=== PATIENT | male | born 1930 | race Caucasian/White ===

== ENCOUNTER → 2016-08-12 | Outpatient (REF) | payer MEDICARE, OTHER ==
[~2016-08-12] MED LIST: /ADVA50050 INH; ACTO15TA OR; AMBI5TAB PO; ASPI81TA83 OR; COZA25TA8 OR; GLUC500T OR; LOPR50TA PO; MEST60TA PO; MULTIVIT PO; OMEP20TA7 PO; REFLUX MED PO; ROSU10TA OR; STOOL SOFTENER PO; VENTAER INH; VITAMIN C PO; ZETI10TA OR
[2016-08-12 13:51] LABS: BASO % 0.4 % (0.0-1.0); EOS # 0.1 K/mm3 (0.0-0.50); EOS % 1.7 % (0.0-3.0); LARGE UNSTAINED CELL # 0.2 K/mm3 (0.0-0.4); LARGE UNSTAINED CELL % 2.4 % (0.0-4.0); LYMPH # 0.5 K/mm3 (1.5-4.5); LYMPH % 7.6 % (24.0-44.0); MEAN CORPUSCULAR HEMOGLOBIN 29.7 pg (27.0-33.0); MEAN CORPUSCULAR HGB CONC 30.4 g/dl (32.0-36.5); MEAN CORPUSCULAR VOLUME 97.6 fl (80.0-96.0); MONO # 0.6 K/mm3 (0.0-0.8); MONO % 8.2 % (0.0-5.0); NEUTROPHILS # 5.3 K/mm3 (1.8-7.7); NEUTROPHILS % 79.7 % (36.0-66.0); PLATELET COUNT, AUTOMATED 443 k/mm3 (150-450); RED CELL DISTRIBUTION WIDTH 13.1 % (11.5-14.5); WHITE BLOOD COUNT 6.7 K/mm3 (4.0-10.0)
[2016-08-12 14:22] LABS: ALBUMIN/GLOBULIN RATIO 0.91 (1.00-1.93); BILIRUBIN,TOTAL 0.2 MG/DL (0.2-1.0); CALCIUM LEVEL 8.8 MG/DL (8.8-10.2); CREATININE FOR GFR 1.92 MG/DL (0.70-1.30); GLOMERULAR FILTRATION RATE 35.7 (>35); POTASSIUM SERUM 4.6 MEQ/L (3.5-5.1); TOTAL PROTEIN 6.3 GM/DL (6.4-8.2)
== END ==
LOC: M LABNEURO 13:18
PROVIDERS: ATTEND Psychiatry & Neurology Neurology
DX: G70.00 Myasthenia gravis without (acute) exacerbation (principal)

== ENCOUNTER → 2016-12-16 | Outpatient (REF) | payer MEDICARE, OTHER ==
[2016-12-16 14:22] LABS: BASO % 0.3 % (0.0-1.0); EOS # 0.1 K/mm3 (0.0-0.50); EOS % 1.5 % (0.0-3.0); LARGE UNSTAINED CELL # 0.2 K/mm3 (0.0-0.4); LARGE UNSTAINED CELL % 2.8 % (0.0-4.0); LYMPH # 0.5 K/mm3 (1.5-4.5); LYMPH % 7.8 % (24.0-44.0); MEAN CORPUSCULAR HEMOGLOBIN 30.8 pg (27.0-33.0); MEAN CORPUSCULAR HGB CONC 31.5 g/dl (32.0-36.5); MEAN CORPUSCULAR VOLUME 97.8 fl (80.0-96.0); MONO # 0.5 K/mm3 (0.0-0.8); MONO % 8.2 % (0.0-5.0); NEUTROPHILS # 5.2 K/mm3 (1.8-7.7); NEUTROPHILS % 79.4 % (36.0-66.0); PLATELET COUNT, AUTOMATED 436 k/mm3 (150-450); WHITE BLOOD COUNT 6.6 K/mm3 (4.0-10.0)
[2016-12-16 15:39] LABS: ALBUMIN 2.8 GM/DL (3.2-5.2); ALBUMIN/GLOBULIN RATIO 0.78 (1.00-1.93); BILIRUBIN,TOTAL 0.3 MG/DL (0.2-1.0); CALCIUM LEVEL 8.5 MG/DL (8.8-10.2); CREATININE FOR GFR 1.96 MG/DL (0.70-1.30); GLOMERULAR FILTRATION RATE 34.9 (>35); POTASSIUM SERUM 4.4 MEQ/L (3.5-5.1); TOTAL PROTEIN 6.4 GM/DL (6.4-8.2)
== END ==
LOC: M LABNEURO 13:03
PROVIDERS: ATTEND Psychiatry & Neurology Neurology
DX: G70.00 Myasthenia gravis without (acute) exacerbation (principal)

== ENCOUNTER → 2017-03-03 | Outpatient (REF) | payer MEDICARE, OTHER ==
[2017-03-03 18:40] LABS: FOLATE 16.6 NG/ML
== END ==
LOC: M LAB REF 16:19
PROVIDERS: ATTEND Internal Medicine
DX: D64.9 Anemia, unspecified (principal)

== ENCOUNTER → 2017-03-31 | Outpatient (REF) | payer MEDICARE, OTHER | LOC: M LAB REF 17:47 | PROVIDERS: ATTEND Internal Medicine | DX: R63.4 Abnormal weight loss (principal) ==

== ENCOUNTER 2017-07-09 11:39 | Day surgery (SDC) | payer MEDICARE, OTHER ==
[2017-07-09] MEDS: NS 1,000 ML IV (13:00)
[2017-07-09] MEDS ORDERED: LIDOCAINE 2% INJ 100 MG/5 ML SDV (FOR ANES.) As Ordered (13:21)
[2017-07-09] MEDS ORDERED: PROPOFOL 200 MG/20 ML VIAL As Ordered ×2 (13:21)
[2017-07-09] MEDS ORDERED: ePHEDrine SULFATE 25 MG/5 ML(5MG/ML) SYRINGE As Ordered (13:39)
== END 2017-07-09 14:35 | disposition home or self-care (01) ==
LOC: M OPP 11:39
DX: D50.9 Iron deficiency anemia, unspecified (principal); R19.5 Other fecal abnormalities; K63.3 Ulcer of intestine; K57.30 Diverticulosis of large intestine without perforation or abscess without bleeding; K64.0 First degree hemorrhoids; K31.89 Other diseases of stomach and duodenum; K44.9 Diaphragmatic hernia without obstruction or gangrene; I25.10 Atherosclerotic heart disease of native coronary artery without angina pectoris; I10 Essential (primary) hypertension; E78.5 Hyperlipidemia, unspecified; K21.9 Gastro-esophageal reflux disease without esophagitis; R12 Heartburn; Z95.1 Presence of aortocoronary bypass graft; G70.00 Myasthenia gravis without (acute) exacerbation; R06.02 Shortness of breath; M19.90 Unspecified osteoarthritis, unspecified site; J44.9 Chronic obstructive pulmonary disease, unspecified; F17.220 Nicotine dependence, chewing tobacco, uncomplicated; Z88.8 Allergy status to other drugs, medicaments and biological substances; Z79.82 Long term (current) use of aspirin; Z79.899 Other long term (current) drug therapy; Z80.3 Family history of malignant neoplasm of breast
CPT/HCPCS: 45380

== ENCOUNTER → 2017-08-16 | Outpatient (REF) | payer MEDICARE, OTHER ==
[2017-08-16 18:38] LABS: IRON (FE) 39 UG/DL (65-175); PERCENT SATURATION 20.5 % (19.7-50.0); TOTAL IRON BINDING CAPACITY 190 UG/DL (250-450)
== END ==
LOC: M LAB REF 17:08
DX: D50.0 Iron deficiency anemia secondary to blood loss (chronic) (principal)
CPT/HCPCS: 83550

== ENCOUNTER → 2017-10-07 | Outpatient (CLI) | payer MEDICARE, OTHER ==
[~2017-10-07] MED LIST changes: -/ADVA50050 INH; -ACTO15TA OR; -AMBI5TAB PO; -ASPI81TA83 OR; -COZA25TA8 OR; -GLUC500T OR; +GLUCAGON FOR INJ 1 MG VIAL (J1610) As Ordered; +ISOVUE-370 76% 100ML VIAL (Q9967) As Ordered; -LOPR50TA PO; -MEST60TA PO; -MULTIVIT PO; -OMEP20TA7 PO; -REFLUX MED PO; -ROSU10TA OR; -STOOL SOFTENER PO; -VENTAER INH; -VITAMIN C PO; +VoLumen 0.1% SUSPENSION 450ML BOTTLE As Ordered; -ZETI10TA OR
== END ==
LOC: M RAD 07:24
DX: D64.9 Anemia, unspecified (principal); R93.3 Abnormal findings on diagnostic imaging of other parts of digestive tract
CPT/HCPCS: 74177

== ENCOUNTER 2017-11-06 15:19 | Inpatient (IN) | payer MEDICARE, OTHER ==
[2017-11-06 16:53] LABS: BASO % 0.4 % (0.0-1.0); EOS # 0.1 10^3/uL (0.0-0.50); EOS % 1.6 % (0.0-3.0); HEMATOCRIT 29.5 % (42.0-52.0); HEMOGLOBIN 8.9 g/dl (13.5-17.5); IMMATURE GRANULOCYTE % 0.9 % (0-3.0); LYMPH # 0.5 10^3/uL (1.5-4.5); LYMPH % 7.9 % (24.0-44.0); MEAN CORPUSCULAR HEMOGLOBIN 29.7 pg (27.0-33.0); MEAN CORPUSCULAR HGB CONC 30.2 g/dl (32.0-36.5); MEAN CORPUSCULAR VOLUME 98.3 fl (80.0-96.0); MONO # 0.6 10^3/uL (0.0-0.8); MONO % 8.2 % (0.0-5.0); NEUTROPHILS # 5.6 10^3/uL (1.8-7.7); PLATELET COUNT, AUTOMATED 507 10^3/uL (150-450); RED CELL DISTRIBUTION WIDTH 16.4 % (11.5-14.5); WHITE BLOOD COUNT 6.9 10^3/uL (4.0-10.0)
[2017-11-06 16:57] LABS: INR 0.92; PROTHROMBIN TIME 12.5 SECONDS (12.1-14.4)
[2017-11-06 16:58] LABS: PARTIAL THROMBOPLASTIN TIME 25.3 SECONDS (25.4-37.6)
[2017-11-06 17:06] LABS: ALBUMIN 2.6 GM/DL (3.2-5.2); ALKALINE PHOSPHATASE 78 U/L (45-117); ALT/SGPT 16 U/L (12-78); ANION GAP 9 MEQ/L (8-16); AST/SGOT 15 U/L (7-37); BILIRUBIN,DIRECT < 0.1 MG/DL (0.0-0.2); BILIRUBIN,TOTAL 0.1 MG/DL (0.2-1.0); BLOOD UREA NITROGEN 27 MG/DL (7-18); C REACTIVE PROTEIN QUANTITATIV 0.74 MG/DL (0.00-0.30); CALCIUM LEVEL 7.9 MG/DL (8.8-10.2); CARBON DIOXIDE LEVEL 24 MEQ/L (21-32); CHLORIDE LEVEL 104 MEQ/L (98-107); CPK CREATINE PHOSPHOKINASE 37 U/L (39-308); CREATININE FOR GFR 1.37 MG/DL (0.70-1.30); FREE T4 0.82 NG/DL (0.76-1.46); GLOMERULAR FILTRATION RATE 52.6 (>35); GLUCOSE, FASTING 93 MG/DL (70-100); POTASSIUM SERUM 4.2 MEQ/L (3.5-5.1); SODIUM LEVEL 137 MEQ/L (136-145); TOTAL PROTEIN 6.3 GM/DL (6.4-8.2); TROPONIN I < 0.02 NG/ML (< 0.10)
[2017-11-06 17:11] LABS: CK-MB VALUE MASS 1.3 NG/ML (<3.6); MB/CK RELATIVE INDEX 3.51 (< OR =4)
[2017-11-06] MEDS: ASPIRIN 325 MG TAB PO (18:17)
[2017-11-06 18:42] LABS: FERRITIN 258 NG/ML (26-388); IRON (FE) 51 UG/DL (65-175); PERCENT SATURATION 23.6 % (19.7-50.0); TOTAL IRON BINDING CAPACITY 216 UG/DL (250-450)
[2017-11-06] MEDS ORDERED: IPRATROPIUM 0.5MG/ALBUTEROL 2.5MG INH SOL UD 3ML (DUONEB)(J7620) NEB (20:15)
[2017-11-06] MEDS ORDERED: ACETAMINOPHEN TAB 650MG DOSE (2X325MG) PO (20:15)
[2017-11-06] MEDS ORDERED: OMEPRAZOLE 20 MG CAP PO (20:30)
[2017-11-06] MEDS: ADVAIR HFA 230/21MCG INHALER INH (21:00)
[2017-11-06] MEDS: WARFARIN SOD 5 MG TAB PO (23:23)
[2017-11-06] MEDS: ROSUVASTATIN 10 MG TAB (CRESTOR) PO (23:23)
[2017-11-06] MEDS: diphenhydrAMINE 25 MG CAP PO (23:23)
[2017-11-06] MEDS: PYRIDOSTIGMINE 60 MG TAB PO (23:24)
[2017-11-06] MEDS: MESALAMINE 250 MG CR CAP PO (23:24)
[2017-11-06] MEDS: MYCOPHENOLATE MOFETIL 250 MG CAP (J7517) PO (23:24)
[2017-11-06] MEDS ORDERED: PILL CRUSHER/CUTTER 1 EACH XX (23:30)
[2017-11-07 06:29] LABS: INR 0.94; PROTHROMBIN TIME 12.7 SECONDS (12.1-14.4)
[2017-11-07 06:34] LABS: ANION GAP 8 MEQ/L (8-16); BLOOD UREA NITROGEN 26 MG/DL (7-18); CALCIUM LEVEL 7.5 MG/DL (8.8-10.2); CARBON DIOXIDE LEVEL 25 MEQ/L (21-32); CHLORIDE LEVEL 104 MEQ/L (98-107); CREATININE FOR GFR 1.47 MG/DL (0.70-1.30); GLOMERULAR FILTRATION RATE 48.5 (>35); GLUCOSE, FASTING 92 MG/DL (70-100); POTASSIUM SERUM 4.1 MEQ/L (3.5-5.1); SODIUM LEVEL 137 MEQ/L (136-145)
[2017-11-07 07:48] LABS: HEMOGLOBIN 7.8 g/dl (13.5-17.5); MEAN CORPUSCULAR HEMOGLOBIN 30.1 pg (27.0-33.0); MEAN CORPUSCULAR HGB CONC 31.2 g/dl (32.0-36.5); MEAN CORPUSCULAR VOLUME 96.5 fl (80.0-96.0); PLATELET COUNT, AUTOMATED 472 10^3/uL (150-450); RED BLOOD COUNT 2.59 10^6/uL (4.30-6.10); RED CELL DISTRIBUTION WIDTH 16.1 % (11.5-14.5)
[2017-11-07] MEDS: ADVAIR HFA 230/21MCG INHALER INH ×2 (07:48→21:17)
[2017-11-07] MEDS: CALCITRIOL 0.25 MCG CAP (S0169) PO (09:19)
[2017-11-07] MEDS: MULTIVITAMINS/MINERALS THERAP 1 TAB PO (09:19)
[2017-11-07] MEDS: VITAMIN D 1,000 INTERNATIONAL UNITS TABLET PO (09:20)
[2017-11-07] MEDS: PYRIDOSTIGMINE 60 MG TAB PO ×4 (09:20→20:07)
[2017-11-07] MEDS: LOSARTAN 25 MG TAB PO (09:21)
[2017-11-07] MEDS: MYCOPHENOLATE MOFETIL 250 MG CAP (J7517) PO ×2 (09:21→20:05)
[2017-11-07] MEDS: MESALAMINE 250 MG CR CAP PO ×4 (09:21→20:06)
[2017-11-07] MEDS: ASPIRIN 325 MG TAB FT (09:21)
[2017-11-07] MEDS: predniSONE 5 MG TAB PO (09:22)
[2017-11-07] MEDS: FERROUS SULFATE 325MG TAB PO (09:22)
[2017-11-07] MEDS: TAMSULOSIN 0.4 MG CAP PO (09:22)
[2017-11-07] MEDS ORDERED: IPRATROPIUM 0.5MG/ALBUTEROL 2.5MG INH SOL UD 3ML (DUONEB)(J7620) NEB (14:15)
[2017-11-07] MEDS: WARFARIN SOD 5 MG TAB PO ×2 (17:55)
[2017-11-07] MEDS: ROSUVASTATIN 10 MG TAB (CRESTOR) PO (20:06)
[2017-11-08 05:27] LABS: HEMATOCRIT 24.1 % (42.0-52.0); HEMOGLOBIN 7.5 g/dl (13.5-17.5); MEAN CORPUSCULAR HEMOGLOBIN 30.1 pg (27.0-33.0); MEAN CORPUSCULAR HGB CONC 31.1 g/dl (32.0-36.5); MEAN CORPUSCULAR VOLUME 96.8 fl (80.0-96.0); PLATELET COUNT, AUTOMATED 393 10^3/uL (150-450); RED BLOOD COUNT 2.49 10^6/uL (4.30-6.10); WHITE BLOOD COUNT 7.8 10^3/uL (4.0-10.0)
[2017-11-08 05:34] LABS: INR 1.15; PROTHROMBIN TIME 14.9 SECONDS (12.1-14.4)
[2017-11-08 05:44] LABS: ANION GAP 9 MEQ/L (8-16); BLOOD UREA NITROGEN 23 MG/DL (7-18); CALCIUM LEVEL 7.6 MG/DL (8.8-10.2); CARBON DIOXIDE LEVEL 23 MEQ/L (21-32); CHLORIDE LEVEL 103 MEQ/L (98-107); CREATININE FOR GFR 1.42 MG/DL (0.70-1.30); GLOMERULAR FILTRATION RATE 50.4 (>35); GLUCOSE, FASTING 113 MG/DL (70-100); POTASSIUM SERUM 3.8 MEQ/L (3.5-5.1); SODIUM LEVEL 135 MEQ/L (136-145)
[2017-11-08] MEDS: ADVAIR HFA 230/21MCG INHALER INH ×2 (07:36→20:56)
[2017-11-08] MEDS: MYCOPHENOLATE MOFETIL 250 MG CAP (J7517) PO ×2 (08:56→21:13)
[2017-11-08] MEDS: MESALAMINE 250 MG CR CAP PO ×4 (08:56→21:16)
[2017-11-08] MEDS: CALCITRIOL 0.25 MCG CAP (S0169) PO (08:56)
[2017-11-08] MEDS: PYRIDOSTIGMINE 60 MG TAB PO ×4 (08:56→21:15)
[2017-11-08] MEDS: VITAMIN D 1,000 INTERNATIONAL UNITS TABLET PO (08:56)
[2017-11-08] MEDS: ASPIRIN 325 MG TAB FT (08:56)
[2017-11-08] MEDS: TAMSULOSIN 0.4 MG CAP PO (08:57)
[2017-11-08] MEDS: LOSARTAN 25 MG TAB PO (08:57)
[2017-11-08] MEDS: predniSONE 5 MG TAB PO (08:57)
[2017-11-08] MEDS: MULTIVITAMINS/MINERALS THERAP 1 TAB PO (08:57)
[2017-11-08] MEDS ORDERED: SLF 3 ML SYR IV (09:45)
[2017-11-08 10:33] LABS: FOLATE 18.6 NG/ML (>5.4); VITAMIN B12 LEVEL 366 PG/ML (247-911)
[2017-11-08] MEDS: SLF 3 ML SYR IV ×2 (13:09→21:16)
[2017-11-08] MEDS: ROSUVASTATIN 10 MG TAB (CRESTOR) PO (21:14)
[2017-11-08] MEDS: WARFARIN SOD 5 MG TAB PO (23:27)
[2017-11-09 05:20] LABS: HEMATOCRIT 23.4 % (42.0-52.0); HEMOGLOBIN 7.4 g/dl (13.5-17.5); MEAN CORPUSCULAR HEMOGLOBIN 29.6 pg (27.0-33.0); MEAN CORPUSCULAR HGB CONC 31.6 g/dl (32.0-36.5); MEAN CORPUSCULAR VOLUME 93.6 fl (80.0-96.0); PLATELET COUNT, AUTOMATED 401 10^3/uL (150-450); RED CELL DISTRIBUTION WIDTH 15.8 % (11.5-14.5); WHITE BLOOD COUNT 9.3 10^3/uL (4.0-10.0)
[2017-11-09 05:33] LABS: INR 1.65; PROTHROMBIN TIME 19.8 SECONDS (12.1-14.4)
[2017-11-09 05:39] LABS: ANION GAP 7 MEQ/L (8-16); BLOOD UREA NITROGEN 28 MG/DL (7-18); CALCIUM LEVEL 7.9 MG/DL (8.8-10.2); CARBON DIOXIDE LEVEL 26 MEQ/L (21-32); CHLORIDE LEVEL 102 MEQ/L (98-107); CREATININE FOR GFR 1.49 MG/DL (0.70-1.30); GLOMERULAR FILTRATION RATE 47.7 (>35); GLUCOSE, FASTING 119 MG/DL (70-100); POTASSIUM SERUM 3.9 MEQ/L (3.5-5.1); SODIUM LEVEL 135 MEQ/L (136-145)
[2017-11-09] MEDS: SLF 3 ML SYR IV ×3 (06:00→22:02)
[2017-11-09] MEDS: ADVAIR HFA 230/21MCG INHALER INH ×2 (07:20→20:51)
[2017-11-09] MEDS: MESALAMINE 250 MG CR CAP PO ×4 (08:55→22:01)
[2017-11-09] MEDS: LOSARTAN 25 MG TAB PO (08:56)
[2017-11-09] MEDS: PYRIDOSTIGMINE 60 MG TAB PO ×4 (08:56→22:01)
[2017-11-09] MEDS: predniSONE 5 MG TAB PO (08:56)
[2017-11-09] MEDS: TAMSULOSIN 0.4 MG CAP PO (08:56)
[2017-11-09] MEDS: CALCITRIOL 0.25 MCG CAP (S0169) PO (08:56)
[2017-11-09] MEDS: ASPIRIN 325 MG TAB FT (08:56)
[2017-11-09] MEDS: VITAMIN D 1,000 INTERNATIONAL UNITS TABLET PO (08:56)
[2017-11-09] MEDS: MULTIVITAMINS/MINERALS THERAP 1 TAB PO (08:56)
[2017-11-09] MEDS: FERROUS SULFATE 325MG TAB PO (08:57)
[2017-11-09] MEDS: MYCOPHENOLATE MOFETIL 250 MG CAP (J7517) PO ×2 (08:57→22:01)
[2017-11-09 15:02] LABS: INR 1.79; PROTHROMBIN TIME 21.1 SECONDS (12.1-14.4)
[2017-11-09] MEDS: WARFARIN SOD 5 MG TAB PO (16:54)
[2017-11-09] MEDS: ROSUVASTATIN 10 MG TAB (CRESTOR) PO (22:01)
[2017-11-10] MEDS: SLF 3 ML SYR IV (04:53)
[2017-11-10 06:17] LABS: HEMATOCRIT 25.6 % (42.0-52.0); MEAN CORPUSCULAR HEMOGLOBIN 30.4 pg (27.0-33.0); MEAN CORPUSCULAR HGB CONC 31.3 g/dl (32.0-36.5); MEAN CORPUSCULAR VOLUME 97.3 fl (80.0-96.0); PLATELET COUNT, AUTOMATED 396 10^3/uL (150-450); RED BLOOD COUNT 2.63 10^6/uL (4.30-6.10); WHITE BLOOD COUNT 7.9 10^3/uL (4.0-10.0)
[2017-11-10 06:28] LABS: ANION GAP 6 MEQ/L (8-16); BLOOD UREA NITROGEN 27 MG/DL (7-18); CARBON DIOXIDE LEVEL 27 MEQ/L (21-32); CHLORIDE LEVEL 103 MEQ/L (98-107); CREATININE FOR GFR 1.48 MG/DL (0.70-1.30); GLOMERULAR FILTRATION RATE 48.1 (>35); GLUCOSE, FASTING 111 MG/DL (70-100); POTASSIUM SERUM 3.9 MEQ/L (3.5-5.1); SODIUM LEVEL 136 MEQ/L (136-145)
[2017-11-10 06:30] LABS: INR 2.15; PROTHROMBIN TIME 24.4 SECONDS (12.1-14.4)
[2017-11-10] MEDS: PYRIDOSTIGMINE 60 MG TAB PO ×2 (08:15→12:06)
[2017-11-10] MEDS: MYCOPHENOLATE MOFETIL 250 MG CAP (J7517) PO (08:16)
[2017-11-10] MEDS: CALCITRIOL 0.25 MCG CAP (S0169) PO (08:16)
[2017-11-10] MEDS: LOSARTAN 25 MG TAB PO (08:16)
[2017-11-10] MEDS: TAMSULOSIN 0.4 MG CAP PO (08:16)
[2017-11-10] MEDS: MULTIVITAMINS/MINERALS THERAP 1 TAB PO (08:16)
[2017-11-10] MEDS: MESALAMINE 250 MG CR CAP PO ×2 (08:16→12:06)
[2017-11-10] MEDS: ASPIRIN 325 MG TAB FT (08:16)
[2017-11-10] MEDS: VITAMIN D 1,000 INTERNATIONAL UNITS TABLET PO (08:17)
[2017-11-10] MEDS: predniSONE 5 MG TAB PO (08:17)
[2017-11-10] MEDS: ADVAIR HFA 230/21MCG INHALER INH (08:33)
== END 2017-11-10 12:22 | disposition home health service (06) | DRG 66 ==
LOC: M ED 15:19 → M ED INP 20:11 → M PCU 22:23
DX: I63.511 Cerebral infarction due to unspecified occlusion or stenosis of right middle cerebral artery (principal); I63.521 Cerebral infarction due to unspecified occlusion or stenosis of right anterior cerebral artery; H53.2 Diplopia; G70.00 Myasthenia gravis without (acute) exacerbation; J44.9 Chronic obstructive pulmonary disease, unspecified; E11.22 Type 2 diabetes mellitus with diabetic chronic kidney disease; I12.9 Hypertensive chronic kidney disease with stage 1 through stage 4 chronic kidney disease, or unspecified chronic kidney disease; E78.5 Hyperlipidemia, unspecified; N18.3 Chronic kidney disease, stage 3 (moderate); R41.0 Disorientation, unspecified; N40.0 Benign prostatic hyperplasia without lower urinary tract symptoms; K52.9 Noninfective gastroenteritis and colitis, unspecified; K21.9 Gastro-esophageal reflux disease without esophagitis; D50.9 Iron deficiency anemia, unspecified; Z79.82 Long term (current) use of aspirin; Z79.52 Long term (current) use of systemic steroids; Z95.2 Presence of prosthetic heart valve; Z79.899 Other long term (current) drug therapy; Z88.8 Allergy status to other drugs, medicaments and biological substances

== ENCOUNTER → 2017-11-22 | Outpatient (REF) | payer MEDICARE, OTHER ==
[2017-11-22 19:02] LABS: IRON (FE) 50 UG/DL (65-175); PERCENT SATURATION 22.4 % (19.7-50.0); TOTAL IRON BINDING CAPACITY 223 UG/DL (250-450)
== END ==
LOC: M LAB REF 17:20
DX: D64.9 Anemia, unspecified (principal)
CPT/HCPCS: 83550

== ENCOUNTER 2017-12-05 21:47 | Inpatient (IN) | payer MEDICARE, OTHER ==
[2017-12-05] MEDS: GASTROGRAFIN SOLUTION 30ML PO ×2 (00:20→23:41)
[2017-12-06 00:43] LABS: BASO % 0.1 % (0.0-1.0); HEMATOCRIT 28.3 % (42.0-52.0); HEMOGLOBIN 9.1 g/dl (13.5-17.5); IMMATURE GRANULOCYTE % 0.8 % (0-3.0); LYMPH # 0.4 10^3/uL (1.5-4.5); LYMPH % 4.4 % (24.0-44.0); MEAN CORPUSCULAR HEMOGLOBIN 30.4 pg (27.0-33.0); MEAN CORPUSCULAR HGB CONC 32.2 g/dl (32.0-36.5); MEAN CORPUSCULAR VOLUME 94.6 fl (80.0-96.0); MONO # 0.4 10^3/uL (0.0-0.8); NEUTROPHILS # 7.9 10^3/uL (1.8-7.7); NEUTROPHILS % 89.7 % (36.0-66.0); PLATELET COUNT, AUTOMATED 452 10^3/uL (150-450); RED BLOOD COUNT 2.99 10^6/uL (4.30-6.10); RED CELL DISTRIBUTION WIDTH 14.8 % (11.5-14.5); WHITE BLOOD COUNT 8.8 10^3/uL (4.0-10.0)
[2017-12-06 00:45] LABS: APPEARANCE, URINE CLEAR (CLEAR); BACTERIA, URINE AUTO NEGATIVE (NEGATIVE); BILIRUBIN, URINE AUTO NEGATIVE (NEGATIVE); BLOOD, URINE BLOOD NEGATIVE (NEGATIVE); COLOR, URINE YELLOW (YELLOW); GLUCOSE, URINE (UA) AUTO 1+ mg/dL (NEGATIVE); KETONE, URINE AUTO NEGATIVE (NEGATIVE); LEUKOCYTE ESTERASE, URINE AUTO NEGATIVE (NEGATIVE); NITRITE, URINE AUTO NEGATIVE (NEGATIVE); PROTEIN, URINE AUTO 2+ mg/dL (NEGATIVE); RBC, URINE AUTO 1 /HPF (0-3); SPECIFIC GRAVITY URINE AUTO 1.012 (1.002-1.035); SQUAMOUS EPITHELIAL CELL UR AU 0 /HPF (0-6); UROBILINOGEN, URINE AUTO 0.2 mg/dL (0.0-2.0); WBC, URINE AUTO 0 /HPF (0-3)
[2017-12-06 00:56] LABS: ABG BASE EXCESS -2.5 (-2.0-2.0); ABG HCO3 21.6 MEQ/L (22.0-26.0); ABG O2 SATURATION 97.6 % (95.0-99.0); ABG PARTIAL PRESSURE CO2 34.3 mmHg (35.0-45.0); ABG PARTIAL PRESSURE O2 99.3 mmHg (75.0-100.0); ABG STANDARD HCO3 22.4 MEQ/L (22.0-26.0); ABG TOTAL CO2 22.7 MEQ/L (23.0-31.0); ABG pH (ARTERIAL) 7.417 UNITS (7.350-7.450)
[2017-12-06 00:57] LABS: LACTIC ACID SEPSIS PROTOCOL 0.9 MMOL/L (0.4-2.0)
[2017-12-06 01:07] LABS: ALBUMIN 2.5 GM/DL (3.2-5.2); ALBUMIN/GLOBULIN RATIO 0.69 (1.00-1.93); ALKALINE PHOSPHATASE 68 U/L (45-117); ALT/SGPT 25 U/L (12-78); ANION GAP 9 MEQ/L (8-16); AST/SGOT 19 U/L (7-37); BILIRUBIN,DIRECT < 0.1 MG/DL (0.0-0.2); BILIRUBIN,TOTAL 0.1 MG/DL (0.2-1.0); BLOOD UREA NITROGEN 29 MG/DL (7-18); CALCIUM LEVEL 8.2 MG/DL (8.8-10.2); CARBON DIOXIDE LEVEL 24 MEQ/L (21-32); CHLORIDE LEVEL 104 MEQ/L (98-107); FREE THYROXINE INDEX 2.1 % (1.4-3.8); GLOMERULAR FILTRATION RATE 51.3 (>35); GLUCOSE, FASTING 122 MG/DL (70-100); LIPASE 251 U/L (73-393); POTASSIUM SERUM 3.9 MEQ/L (3.5-5.1); SODIUM LEVEL 137 MEQ/L (136-145); T UPTAKE 36 % (33-40); THYROXINE (T4) 5.9 UG/DL (4.5-12.0); TOTAL PROTEIN 6.1 GM/DL (6.4-8.2)
[2017-12-06] MEDS ORDERED: ISOVUE-370 76% 100ML VIAL (Q9967) As Ordered (01:19)
[2017-12-06 02:34] LABS: AMMONIA < 10 uMOL/L (<32)
[2017-12-06] MEDS: NS 1,000 ML IV ×3 (04:11→23:01)
[2017-12-06] MEDS ORDERED: ALBUTEROL SULFATE 2.5 MG/0.5 ML INH NEB SOLN NEB (04:15)
[2017-12-06] MEDS ORDERED: OMEPRAZOLE 20 MG CAP PO (04:15)
[2017-12-06] MEDS ORDERED: DICYCLOMINE 10 MG CAP PO (04:15)
[2017-12-06 04:44] LABS: INR 1.61; PROTHROMBIN TIME 19.4 SECONDS (12.1-14.4)
[2017-12-06] MEDS ORDERED: PILL CRUSHER/CUTTER 1 EACH XX (04:45)
[2017-12-06] MEDS: ROSUVASTATIN 10 MG TAB (CRESTOR) PO ×2 (05:10→21:42)
[2017-12-06] MEDS: ADVAIR HFA 230/21MCG INHALER INH ×2 (08:23→20:36)
[2017-12-06] MEDS: PANTOPRAZOLE 40MG INJ (PROTONIX) (C9113) IV (09:26)
[2017-12-06] MEDS: predniSONE 20 MG TAB PO (09:28)
[2017-12-06] MEDS: MESALAMINE 250 MG CR CAP PO ×4 (09:29→21:42)
[2017-12-06] MEDS: VITAMIN D 1,000 INTERNATIONAL UNITS TABLET PO (09:29)
[2017-12-06] MEDS: LOSARTAN 25 MG TAB PO (09:29)
[2017-12-06] MEDS: MULTIVITAMINS/MINERALS THERAP 1 TAB PO (09:29)
[2017-12-06] MEDS: CALCITRIOL 0.25 MCG CAP (S0169) PO (09:29)
[2017-12-06] MEDS: FERROUS SULFATE 325MG TAB PO (09:30)
[2017-12-06] MEDS: TAMSULOSIN 0.4 MG CAP PO (09:30)
[2017-12-06] MEDS: MYCOPHENOLATE MOFETIL 250 MG CAP (J7517) PO ×2 (11:01→21:42)
[2017-12-06] MEDS: PYRIDOSTIGMINE 60 MG TAB PO ×4 (11:02→21:42)
[2017-12-06] MEDS: WARFARIN SOD 7.5 MG TAB PO (16:53)
[2017-12-06] MEDS ORDERED: WARFARIN SOD 5 MG TAB PO (17:00)
[2017-12-07 06:21] LABS: HEMATOCRIT 22.8 % (42.0-52.0); HEMOGLOBIN 7.4 g/dl (13.5-17.5); MEAN CORPUSCULAR HEMOGLOBIN 30.7 pg (27.0-33.0); MEAN CORPUSCULAR HGB CONC 32.5 g/dl (32.0-36.5); MEAN CORPUSCULAR VOLUME 94.6 fl (80.0-96.0); PLATELET COUNT, AUTOMATED 391 10^3/uL (150-450); RED BLOOD COUNT 2.41 10^6/uL (4.30-6.10); RED CELL DISTRIBUTION WIDTH 15.1 % (11.5-14.5); WHITE BLOOD COUNT 7.1 10^3/uL (4.0-10.0)
[2017-12-07 06:33] LABS: INR 1.71; PROTHROMBIN TIME 20.4 SECONDS (12.1-14.4)
[2017-12-07 06:42] LABS: ANION GAP 10 MEQ/L (8-16); BLOOD UREA NITROGEN 20 MG/DL (7-18); CALCIUM LEVEL 7.4 MG/DL (8.8-10.2); CARBON DIOXIDE LEVEL 23 MEQ/L (21-32); CHLORIDE LEVEL 106 MEQ/L (98-107); CREATININE FOR GFR 1.19 MG/DL (0.70-1.30); GLOMERULAR FILTRATION RATE > 60.0 (>35); GLUCOSE, FASTING 84 MG/DL (70-100); POTASSIUM SERUM 3.5 MEQ/L (3.5-5.1); SODIUM LEVEL 139 MEQ/L (136-145)
[2017-12-07] MEDS: ADVAIR HFA 230/21MCG INHALER INH ×2 (07:25→20:23)
[2017-12-07] MEDS: TAMSULOSIN 0.4 MG CAP PO (08:59)
[2017-12-07] MEDS: CALCITRIOL 0.25 MCG CAP (S0169) PO (08:59)
[2017-12-07] MEDS: MYCOPHENOLATE MOFETIL 250 MG CAP (J7517) PO ×2 (08:59→21:22)
[2017-12-07] MEDS: PYRIDOSTIGMINE 60 MG TAB PO ×4 (09:00→21:22)
[2017-12-07] MEDS: VITAMIN D 1,000 INTERNATIONAL UNITS TABLET PO (09:00)
[2017-12-07] MEDS: predniSONE 20 MG TAB PO (09:00)
[2017-12-07] MEDS: MULTIVITAMINS/MINERALS THERAP 1 TAB PO (09:01)
[2017-12-07] MEDS: MESALAMINE 250 MG CR CAP PO ×4 (09:01→21:22)
[2017-12-07] MEDS: PANTOPRAZOLE 40MG INJ (PROTONIX) (C9113) IV (09:01)
[2017-12-07] MEDS: LOSARTAN 25 MG TAB PO (09:02)
[2017-12-07] MEDS: NS 1,000 ML IV (11:16)
[2017-12-07] MEDS: WARFARIN SOD 5 MG TAB PO (17:48)
[2017-12-07] MEDS: ROSUVASTATIN 10 MG TAB (CRESTOR) PO (21:22)
[2017-12-08] MEDS: NS 1,000 ML IV (00:43)
[2017-12-08] MEDS: ADVAIR HFA 230/21MCG INHALER INH ×2 (07:43→21:41)
[2017-12-08] MEDS: PANTOPRAZOLE 40MG INJ (PROTONIX) (C9113) IV (08:25)
[2017-12-08] MEDS: CALCITRIOL 0.25 MCG CAP (S0169) PO (08:26)
[2017-12-08] MEDS: PYRIDOSTIGMINE 60 MG TAB PO ×4 (08:26→21:32)
[2017-12-08] MEDS: MYCOPHENOLATE MOFETIL 250 MG CAP (J7517) PO ×2 (08:26→21:32)
[2017-12-08] MEDS: MULTIVITAMINS/MINERALS THERAP 1 TAB PO (08:26)
[2017-12-08] MEDS: MESALAMINE 250 MG CR CAP PO ×4 (08:26→21:31)
[2017-12-08] MEDS: FERROUS SULFATE 325MG TAB PO ×3 (08:27→21:31)
[2017-12-08] MEDS: LOSARTAN 25 MG TAB PO (08:27)
[2017-12-08] MEDS: predniSONE 20 MG TAB PO (08:27)
[2017-12-08] MEDS: VITAMIN D 1,000 INTERNATIONAL UNITS TABLET PO (08:30)
[2017-12-08] MEDS: TAMSULOSIN 0.4 MG CAP PO (08:30)
[2017-12-08 09:03] LABS: HEMATOCRIT 23.3 % (42.0-52.0); HEMOGLOBIN 7.4 g/dl (13.5-17.5); MEAN CORPUSCULAR HEMOGLOBIN 30.6 pg (27.0-33.0); MEAN CORPUSCULAR HGB CONC 31.8 g/dl (32.0-36.5); MEAN CORPUSCULAR VOLUME 96.3 fl (80.0-96.0); PLATELET COUNT, AUTOMATED 360 10^3/uL (150-450); RED BLOOD COUNT 2.42 10^6/uL (4.30-6.10); RED CELL DISTRIBUTION WIDTH 14.8 % (11.5-14.5)
[2017-12-08 09:23] LABS: INR 3.32; PROTHROMBIN TIME 34.5 SECONDS (12.1-14.4)
[2017-12-08 09:48] LABS: ANION GAP 9 MEQ/L (8-16); BLOOD UREA NITROGEN 15 MG/DL (7-18); CALCIUM LEVEL 7.2 MG/DL (8.8-10.2); CARBON DIOXIDE LEVEL 22 MEQ/L (21-32); CHLORIDE LEVEL 107 MEQ/L (98-107); CREATININE FOR GFR 1.21 MG/DL (0.70-1.30); GLOMERULAR FILTRATION RATE > 60.0 (>35); GLUCOSE, FASTING 117 MG/DL (70-100); POTASSIUM SERUM 3.2 MEQ/L (3.5-5.1); SODIUM LEVEL 138 MEQ/L (136-145)
[2017-12-08] MEDS: POTASSIUM CHLORIDE 10 MEQ SR TABLET PO (12:03)
[2017-12-08 12:17] LABS: IMMEDIATE SPIN CROSSMATCH 1 1
[2017-12-08 12:53] LABS: FOLATE 20.9 NG/ML (>5.4); VITAMIN B12 LEVEL 583 PG/ML (247-911)
[2017-12-08 12:59] LABS: FERRITIN 524 NG/ML (26-388); IRON (FE) 28 UG/DL (65-175); PERCENT SATURATION 18.3 % (19.7-50.0); TOTAL IRON BINDING CAPACITY 153 UG/DL (250-450)
[2017-12-08 16:16] LABS: HEMATOCRIT 25.1 % (42.0-52.0); HEMOGLOBIN 8.1 g/dl (13.5-17.5); MEAN CORPUSCULAR HEMOGLOBIN 30.8 pg (27.0-33.0); MEAN CORPUSCULAR HGB CONC 32.3 g/dl (32.0-36.5); MEAN CORPUSCULAR VOLUME 95.4 fl (80.0-96.0); PLATELET COUNT, AUTOMATED 375 10^3/uL (150-450); RED BLOOD COUNT 2.63 10^6/uL (4.30-6.10); RED CELL DISTRIBUTION WIDTH 14.8 % (11.5-14.5)
[2017-12-08] MEDS: ROSUVASTATIN 10 MG TAB (CRESTOR) PO (21:32)
[2017-12-09] MEDS: ADVAIR HFA 230/21MCG INHALER INH (07:26)
[2017-12-09 08:22] LABS: HEMATOCRIT 26.2 % (42.0-52.0); HEMOGLOBIN 8.5 g/dl (13.5-17.5); MEAN CORPUSCULAR HEMOGLOBIN 30.9 pg (27.0-33.0); MEAN CORPUSCULAR HGB CONC 32.4 g/dl (32.0-36.5); MEAN CORPUSCULAR VOLUME 95.3 fl (80.0-96.0); PLATELET COUNT, AUTOMATED 344 10^3/uL (150-450); RED BLOOD COUNT 2.75 10^6/uL (4.30-6.10); RED CELL DISTRIBUTION WIDTH 15.2 % (11.5-14.5); WHITE BLOOD COUNT 8.8 10^3/uL (4.0-10.0)
[2017-12-09 08:53] LABS: ANION GAP 11 MEQ/L (8-16); BLOOD UREA NITROGEN 17 MG/DL (7-18); CALCIUM LEVEL 7.2 MG/DL (8.8-10.2); CARBON DIOXIDE LEVEL 22 MEQ/L (21-32); CHLORIDE LEVEL 106 MEQ/L (98-107); CREATININE FOR GFR 1.27 MG/DL (0.70-1.30); GLOMERULAR FILTRATION RATE 57.4 (>35); GLUCOSE, FASTING 102 MG/DL (70-100); POTASSIUM SERUM 3.6 MEQ/L (3.5-5.1); SODIUM LEVEL 139 MEQ/L (136-145)
[2017-12-09] MEDS: FERROUS SULFATE 325MG TAB PO ×2 (09:00→09:16)
[2017-12-09] MEDS: CALCITRIOL 0.25 MCG CAP (S0169) PO (09:15)
[2017-12-09] MEDS: LOSARTAN 25 MG TAB PO (09:16)
[2017-12-09] MEDS: MESALAMINE 250 MG CR CAP PO ×3 (09:16→17:39)
[2017-12-09] MEDS: TAMSULOSIN 0.4 MG CAP PO (09:17)
[2017-12-09] MEDS: MULTIVITAMINS/MINERALS THERAP 1 TAB PO (09:17)
[2017-12-09] MEDS: MYCOPHENOLATE MOFETIL 250 MG CAP (J7517) PO (09:17)
[2017-12-09] MEDS: PYRIDOSTIGMINE 60 MG TAB PO ×3 (09:18→17:39)
[2017-12-09] MEDS: predniSONE 20 MG TAB PO (09:19)
[2017-12-09] MEDS: VITAMIN D 1,000 INTERNATIONAL UNITS TABLET PO (09:20)
[2017-12-09] MEDS: PANTOPRAZOLE 40MG INJ (PROTONIX) (C9113) IV (09:20)
[2017-12-09 11:08] LABS: INR 3.05; PROTHROMBIN TIME 32.2 SECONDS (12.1-14.4)
[2017-12-09 14:17] LABS: QUANTIFERON GOLD TB Negative (Negative); TB Test (QFT) Antigen 0.07 IU/mL (.); TB Test (QFT) Antigen Minus Ni 0.03 IU/mL (.); TB Test (QFT) Mitogen 4.01 IU/mL (.); TB Test (QFT) Nil 0.04 IU/mL (.)
== END 2017-12-09 19:32 | disposition home or self-care (01) | DRG 390 ==
LOC: M ED INP 12-06 04:42 → M ED 21:47 → M MSPAV 12-06 08:59
PROC: 30233N1 Transfusion of Nonautologous Red Blood Cells into Peripheral Vein, Percutaneous Approach (ICD-10-PCS; principal; 2017-12-08)
DX: K56.7 Ileus, unspecified (principal); K52.9 Noninfective gastroenteritis and colitis, unspecified; G70.00 Myasthenia gravis without (acute) exacerbation; J44.9 Chronic obstructive pulmonary disease, unspecified; I12.9 Hypertensive chronic kidney disease with stage 1 through stage 4 chronic kidney disease, or unspecified chronic kidney disease; E78.5 Hyperlipidemia, unspecified; E11.22 Type 2 diabetes mellitus with diabetic chronic kidney disease; N18.3 Chronic kidney disease, stage 3 (moderate); I25.10 Atherosclerotic heart disease of native coronary artery without angina pectoris; N40.0 Benign prostatic hyperplasia without lower urinary tract symptoms; K21.9 Gastro-esophageal reflux disease without esophagitis; H91.90 Unspecified hearing loss, unspecified ear; D50.9 Iron deficiency anemia, unspecified; Z95.1 Presence of aortocoronary bypass graft; Z86.73 Personal history of transient ischemic attack (TIA), and cerebral infarction without residual deficits; Z79.01 Long term (current) use of anticoagulants; Z79.52 Long term (current) use of systemic steroids; Z79.899 Other long term (current) drug therapy

== ENCOUNTER 2017-12-27 20:32 | Emergency (ER) | payer MEDICARE, OTHER ==
[2017-12-27 18:05] LABS: BEDSIDE GLUCOSE 146 MG/DL (83-110)
[2017-12-27 18:20] LABS: BASO % 0.1 % (0.0-1.0); HEMATOCRIT 29.7 % (42.0-52.0); HEMOGLOBIN 9.5 g/dl (13.5-17.5); IMMATURE GRANULOCYTE % 0.6 % (0-3.0); LYMPH # 0.4 10^3/uL (1.5-4.5); LYMPH % 2.9 % (24.0-44.0); MEAN CORPUSCULAR VOLUME 97.1 fl (80.0-96.0); MONO # 0.6 10^3/uL (0.0-0.8); MONO % 4.3 % (0.0-5.0); NEUTROPHILS # 12.5 10^3/uL (1.8-7.7); NEUTROPHILS % 92.1 % (36.0-66.0); PLATELET COUNT, AUTOMATED 452 10^3/uL (150-450); RED BLOOD COUNT 3.06 10^6/uL (4.30-6.10); RED CELL DISTRIBUTION WIDTH 14.2 % (11.5-14.5); WHITE BLOOD COUNT 13.6 10^3/uL (4.0-10.0)
[2017-12-27 18:33] LABS: INR 2.66; PROTHROMBIN TIME 28.9 SECONDS (12.1-14.4)
[2017-12-27 18:48] LABS: ACETAMINOPHEN LEVEL < 2.0 UG/ML (10.0-30.0); ALBUMIN 2.1 GM/DL (3.2-5.2); ALKALINE PHOSPHATASE 72 U/L (45-117); ALT/SGPT 22 U/L (12-78); ANION GAP 16 MEQ/L (8-16); AST/SGOT 17 U/L (7-37); BILIRUBIN,DIRECT < 0.1 MG/DL (0.0-0.2); BLOOD UREA NITROGEN 28 MG/DL (7-18); CALCIUM LEVEL 7.9 MG/DL (8.8-10.2); CARBON DIOXIDE LEVEL 22 MEQ/L (21-32); CHLORIDE LEVEL 100 MEQ/L (98-107); CPK CREATINE PHOSPHOKINASE 37 U/L (39-308); CREATININE FOR GFR 1.65 MG/DL (0.70-1.30); GLOMERULAR FILTRATION RATE 42.4 (>35); GLUCOSE, FASTING 141 MG/DL (70-100); POTASSIUM SERUM 3.8 MEQ/L (3.5-5.1); SALICYLATE LEVEL < 1.7 MG/DL (5.0-30.0); SODIUM LEVEL 138 MEQ/L (136-145); TOTAL PROTEIN 5.6 GM/DL (6.4-8.2); TROPONIN I 0.02 NG/ML (< 0.10)
[2017-12-27 18:55] LABS: BILIRUBIN,TOTAL 0.2 MG/DL (0.2-1.0); CK-MB VALUE MASS 1.6 NG/ML (<3.6); MB/CK RELATIVE INDEX 4.32 (< OR =4)
[2017-12-27 19:06] LABS: ETHYL ALCOHOL (ETHANOL) < 0.003 % (0.000-0.010)
[2017-12-27] MEDS: NS 1,000 ML IV (19:07)
[2017-12-27 19:08] LABS: LACTIC ACID SEPSIS PROTOCOL 6.9 MMOL/L (0.4-2.0)
[2017-12-27] MEDS: levETIRAcetam INJection 1,000 MG in D5W 100 ML IV (19:49)
== END 2017-12-27 20:38 | disposition short-term general hospital (02) ==
LOC: M ED 20:32
DX: I63.9 Cerebral infarction, unspecified (principal); R56.9 Unspecified convulsions; N18.3 Chronic kidney disease, stage 3 (moderate); R00.0 Tachycardia, unspecified; I45.10 Unspecified right bundle-branch block; I44.4 Left anterior fascicular block; I48.91 Unspecified atrial fibrillation; E11.9 Type 2 diabetes mellitus without complications; E78.5 Hyperlipidemia, unspecified; K21.9 Gastro-esophageal reflux disease without esophagitis; Z95.5 Presence of coronary angioplasty implant and graft; Z86.73 Personal history of transient ischemic attack (TIA), and cerebral infarction without residual deficits; Z79.01 Long term (current) use of anticoagulants; Z79.899 Other long term (current) drug therapy; Z88.8 Allergy status to other drugs, medicaments and biological substances
CPT/HCPCS: J1953

== ENCOUNTER → 2017-12-27 | Outpatient (REF) | payer MEDICARE, OTHER ==
[2017-12-27 18:07] LABS: BLOOD UREA NITROGEN 28 MG/DL (7-18)
[2017-12-27 18:07] LABS: CREATININE FOR GFR 1.54 MG/DL (0.70-1.30); GLOMERULAR FILTRATION RATE 45.9 (>35)
== END ==
LOC: M LABNEURO 14:07
DX: N18.3 Chronic kidney disease, stage 3 (moderate) (principal)